=== PATIENT | female | born 2005 ===

== ENCOUNTER 2023-11-04 10:44 | Emergency (ER) | payer MEDICAID ==
[~2023-11-04] VITALS: Ht 160 cm; Wt 62.6 kg
[2023-11-04 11:04] VITALS: O2SAT 100
[2023-11-04 11:17] LABS: HEMATOCRIT. 41.3 % (36.0-48.0); HEMOGLOBIN. 13.5 g/dL (12.0-16.0); MEAN CORPUSCULAR HEMOGLOBIN 28.8 pg (28.0-32.0); MEAN CORPUSCULAR HGB CONC 32.7 g/dL (31.0-37.0); MEAN CORPUSCULAR VOLUME 88.1 fL (81.0-99.0); MEAN PLATELET VOLUME 9.1 fl (7.4-10.4); PLATELET 224 x1000/uL (130-400); RED BLOOD CELL COUNT 4.68 mill/uL (4.2-5.4); RED CELL DISTRIBUTION WIDTH 13.3 % (11.6-14.6); WHITE BLOOD COUNT 16.8 x1000/uL (4.5-11.0)
[2023-11-04 11:19] LABS: DIFFERENTIAL COMMENT 1
[2023-11-04 11:36] LABS: CHLORIDE 105 mEq/L (98-107); POTASSIUM 3.2 mEq/L (3.5-5.1); SODIUM 138 mEq/L (136-145)
[2023-11-04 11:38] LABS: CARBON DIOXIDE 24 mEq/L (21-32)
[2023-11-04 11:39] LABS: CALCIUM 9.7 mg/dL (8.7-10.4)
[2023-11-04 11:44] LABS: CREATININE 0.7 mg/dL (0.6-1.0); GLUCOSE 153 mg/dL (70-105); UREA NITROGEN BLOOD 8 mg/dL (9-23)
[2023-11-04 11:45] LABS: ALANINE AMINOTRANSFERASE 14 IU/L (10-49); ALBUMIN 4.8 g/dL (3.2-4.8)
[2023-11-04 11:46] LABS: ASPARTATE AMINOTRANSFERASE 17 IU/L (<34); BILIRUBIN DIRECT 0.2 mg/dL (<=3.0); BILIRUBIN TOTAL 0.8 mg/dL (0.1-1.0); PROTEIN TOTAL 8.1 g/dL (6.0-8.3)
[2023-11-04 12:01] LABS: CLARITY URINE TURBID (CLEAR); COLOR URINE BLOODY (YELLOW); PH URINE 6.5 (4.5-8.0); SPECIFIC GRAVITY URINE 1.025 (1.005-1.030)
[2023-11-04 12:02] LABS: GLUCOSE URINE NEGATIVE (NEGATIVE); KETONES URINE TRACE (NEGATIVE); LEUKOCYTE ESTERASE URINE TRACE (NEGATIVE); NITRITE URINE POSITIVE (NEGATIVE); OCCULT BLOOD URINE 3+ (NEGATIVE); PROTEIN URINE 3+ (NEGATIVE)
[2023-11-04 12:06] LABS: HCG SCREEN NEGATIVE
[2023-11-04 12:09] LABS: PLATELET ESTIMATE NORMAL
[2023-11-04 12:11] LABS: RBC URINE TNTC /hpf (0-2)
[2023-11-04 12:12] LABS: SQUAMOUS EPITHELIAL CELL URINE NONE SEEN /lpf (RARE/1+)
[2023-11-04 12:13] LABS: BACTERIA URINE 2+
[2023-11-04] MEDS: POTASSIUM CHLORIDE 20MEQ/PACKET PO NR (12:29)
[2023-11-04] MEDS ORDERED: SULF1TAB48 MT (12:36)
[2023-11-04] MEDS ORDERED: PHEN-815 MT (12:36)
[2023-11-04 12:46] VITALS: BP 124/62; PULSE 79; RESP 14; TEMP 99.4
== END 2023-11-04 12:52 | disposition home or self-care (01) ==
LOC: ER 10:53
DX: N12 Tubulo-interstitial nephritis, not specified as acute or chronic (principal)
CPT/HCPCS: 36415; 80048; 80076; 81003; 81025; 84703; 85025; 99283